=== PATIENT | female | born 1960 | race American Indian/Alaskan Native ===

== ENCOUNTER 2016-08-09 10:34 | Emergency (ER) | payer OTHER ==
[2016-08-09 10:34] VITALS: BMI 33.9
[2016-08-09 11:20] VITALS: O2SAT 99
[2016-08-09 11:58] LABS: BASO # 0.1 K/uL (0.0-0.2); BASO % 0.7 % (0.0-2.0); EOS % 0.1 % (0.0-4.0); HEMATOCRIT 39.5 % (34.0-47.0); LYMPH # 1.1 K/uL (1.0-4.3); LYMPH % 13.2 % (20.0-40.0); MEAN CORPUSCULAR HEMOGLOBIN 27.4 pg (27.0-31.0); MEAN CORPUSCULAR HGB CONC 34.3 g/dL (33.0-37.0); MEAN PLATELET VOLUME 8.7 fL (7.2-11.7); MONO # 0.9 K/uL (0.0-0.8); MONO % 10.7 % (0.0-10.0); RED CELL DISTRIBUTION WIDTH 12.5 % (11.5-14.5); WHITE BLOOD COUNT 8.6 K/uL (4.8-10.8)
--- NOTE | 2016-08-09 12:00 | C.PDOC ---
History Of Present Illness 56 y/o female presents to ED with complaints of general body aches, subjective fever and flu-like symptoms since last night. Patient also complaints of right side sore throat but denies N/V/D, UTI symptoms or any other complaints at this time. Time Seen by Provider: 08/09/16 11:17 Chief Complaint (Nursing): High Blood Sugar History Per: Patient History/Exam Limitations: no limitations Onset/Duration Of Symptoms: Days Current Symptoms Are (Timing): Still Present Associated Infectious Symptoms: Sore Throat. denies: Nausea, Vomiting Past Medical History Reviewed: Historical Data, Nursing Documentation, Vital Signs Vital Signs: Last Vital Signs Temp 98.3 F 08/09/16 13:46 Pulse 84 08/09/16 13:46 Resp 17 08/09/16 13:46 BP 124/81 08/09/16 13:46 Pulse Ox 99 08/09/16 13:57 - Medical History PMH: HTN, Hypercholesterolemia Surgical History: Appendectomy Family History: States: No Known Family Hx - Social History Hx Alcohol Use: No Hx Substance Use: No - Immunization History Hx Tetanus Toxoid Vaccination: Yes Hx Influenza Vaccination: Yes Hx Pneumococcal Vaccination: Yes Review Of Systems Except As Marked, All Systems Reviewed And Found Negative. Constitutional: Positive for: Fever. Negative for: Weakness Cardiovascular: Negative for: Chest Pain Respiratory: Negative for: Shortness of Breath Gastrointestinal: Negative for: Nausea, Vomiting, Diarrhea Genitourinary: Negative for: Dysuria, Frequency Musculoskeletal: Positive for: Other (General Body Aches) Neurological: Negative for: Weakness, Dizziness Physical Exam - Physical Exam Appears: In Acute Distress Skin: Normal Color, Warm Head: Atraumatic, Normacephalic Oral Mucosa: Moist Throat: No Erythema, No Exudate, Other (Right Tonsil swelling) Neck: Normal ROM Chest: Symmetrical Cardiovascular: Rhythm Regular Respiratory: No Rales, No Rhonchi, No Wheezing Gastrointestinal/Abdominal: Soft, No Tenderness, No Guarding, No Rebound Extremity: Normal ROM Neurological/Psych: Oriented x3, Normal Cognition, Other (Moaning Voice) ED Course And Treatment - Laboratory Results Result Diagrams: 08/09/16 11:54 08/09/16 11:54 O2 Sat by Pulse Oximetry: 99 (RA) Pulse Ox Interpretation: Normal - Other Rad CX X-Ray: Interpreted by Me, Read By Radiologist Interpretation: Accession No. : [id number]. Patient Name / ID : FRANCISCO JAVIER SCHMIDT / [id number]. Exam Date : 08/09/2016 12:07:08 ( Approved ). Study Comment : Sex / Age : F / 56Y. Creator : LAYTON CORONADO. Dictator : Linda Becerril MD. Hammer Operator : Principal Accounts Clerk : Linda Becerril MD. Approver2 : Report Date : 08/09/2016 12:17:50. My Comment : . HISTORY: MALAISE. COMPARISON: None available. TECHNIQUE: Chest PA and lateral. FINDINGS: Examination limited by habitus. LUNGS: No focal consolidation. Please note that chest x-ray has limited sensitivity for the detection of pulmonary masses. PLEURA: No significant pleural effusion identified. No definite pneumothorax . CARDIOVASCULAR: The cardiomediastinal silhouette appears within normal limits of size. OSSEOUS STRUCTURES: Mild degenerative changes of the spine. VISUALIZED UPPER ABDOMEN: Unremarkable. OTHER FINDINGS : None. IMPRESSION: No focal consolidation, significant pleural effusion, or definite pneumothorax identified. Progress - Re-Evaluation Re-evaluation Note: 08/09/16 13:56 FEELS BETTER VSS. +UO S/P IVF - Data Reviewed Data Reviewed: Lab, Diagnostic imaging Medical Decision Making Medical Decision Making: Impression: Faringitis, Viral syndrome Plan: Fluids Disposition Counseled Patient/Family Regarding: Studies Performed, Diagnosis, Need For Followup - Disposition [facility]errals: [facility] [Outside] [facility] [Outside] YOUR,PMD [Other] Disposition: HOME/ ROUTINE Disposition Time: 13:57 Condition: IMPROVED Instructions: Pharyngitis (ED) Forms: Work Excuse - Clinical Impression Clinical Impression: Viral syndrome, Pharyngitis, Hyperglycemia - PA / SUPERVISOR HEADING / Resident Statement ANDRÉS has reviewed & agrees with the documentation as recorded. ANDRÉS has examined the patient and agrees with the treatment plan. - Scribe Statement The provider has reviewed the documentation as recorded by the Parkeribe Nish Penn All medical record entries made by the Parkeriboneal were at my direction and personally dictated by me. I have reviewed the chart and agree that the record accurately reflects my personal performance of the history, physical exam, medical decision making, and the department course for this patient. I have also personally directed, reviewed, and agree with the discharge instructions and disposition.
[2016-08-09] MEDS ORDERED: Sodium Chloride 0.9% 1,000 ML IV ONE (12:02)
[2016-08-09 12:11] LABS: CHLORIDE 94 mmol/L (98-107); POTASSIUM 4.2 mmol/L (3.6-5.2); SODIUM 133 mmol/L (132-148)
[2016-08-09 12:13] LABS: GFR AFRICAN-AMERICAN > 60
[2016-08-09 12:14] LABS: ALB/GLOB RATIO 1.4 (1.0-2.1); ALKALINE PHOSPHATASE 127 U/L (38-126); ALT/SGPT 22 U/L (9-52); AST/SGOT 37 U/L (14-36); BILIRUBIN,TOTAL 1.4 mg/dL (0.2-1.3); BLOOD UREA NITROGEN 17 mg/dL (7-17); CARBON DIOXIDE 24 mmol/L (22-30); TOTAL PROTEIN 8.4 g/dL (6.3-8.3)
[2016-08-09 12:15] LABS: CALCIUM 8.6 mg/dl (8.6-10.4)
[2016-08-09 12:18] LABS: GLUCOSE,RANDOM 404 mg/dL (65-105)
[2016-08-09 12:25] LABS: VENOUS BLOOD GAS BASE EXCESS -6.6 mmol/L (0.0-2.0); VENOUS BLOOD GAS PCO2 34 mmHg (40-60); VENOUS BLOOD PH 7.34 (7.32-7.43)
--- NOTE | 2016-08-09 12:25 | RAD ---
HISTORY: MALAISE COMPARISON: None available. TECHNIQUE: Chest PA and lateral FINDINGS: Examination limited by habitus. LUNGS: No focal consolidation. Please note that chest x-ray has limited sensitivity for the detection of pulmonary masses. PLEURA: No significant pleural effusion identified. No definite pneumothorax . CARDIOVASCULAR: The cardiomediastinal silhouette appears within normal limits of size. OSSEOUS STRUCTURES: Mild degenerative changes of the spine. VISUALIZED UPPER ABDOMEN: Unremarkable. OTHER FINDINGS: None. IMPRESSION: No focal consolidation, significant pleural effusion, or definite pneumothorax identified.
[2016-08-09] MEDS ORDERED: Sodium Chloride 0.9% 1,000 ML ONE (12:44)
[2016-08-09 13:02] LABS: RBC URINE < 1 /hpf (0-3); URINE BILIRUBIN NEGATIVE (NEGATIVE); URINE BLOOD NEGATIVE (NEGATIVE); URINE COLOR Yellow (YELLOW); URINE GLUCOSE (UA) 3+ mg/dL (Normal); URINE KETONE NEGATIVE (NEGATIVE); URINE LEUKOCYTE ESTERASE NEG Leu/uL (Negative); URINE PROTEIN NEGATIVE (NEGATIVE); URINE UROBILINOGEN NORMAL mg/dL (0.2-1.0); WBC URINE < 1 /hpf (0-5)
[2016-08-09 13:55] VITALS: BP 124/81; PULSE 84; RESP 17; TEMP 98.3
== END 2016-08-09 14:16 | disposition home or self-care (01) ==
LOC: C.ER 10:34
DX: J02.8 Acute pharyngitis due to other specified organisms (principal); R73.9 Hyperglycemia, unspecified
CPT/HCPCS: 71020; 80053; 81001; 82009; 82803; 82948; 85025; 87070; 87430; 96374; 99285; J1885; J7040

== ENCOUNTER 2018-04-14 11:06 | Outpatient (CLI) | payer OTHER | END 2018-04-14 11:07 | disposition home or self-care (01) | LOC: C.MAMMO 11:07 ==

== ENCOUNTER 2018-07-11 07:47 | Outpatient (CLI) | payer OTHER | END 2018-07-11 07:48 | disposition home or self-care (01) | LOC: C.LAB 07:47 | DX: Z01.818 Encounter for other preprocedural examination (principal); E11.9 Type 2 diabetes mellitus without complications; I10 Essential (primary) hypertension ==